=== PATIENT | female | born 1995 | race Two or more races ===

== ENCOUNTER 2021-03-27 13:55 | Emergency (ER) | payer OTHER ==
[~2021-03-27] VITALS: Ht 160 cm; Wt 68.5 kg
== END 2021-03-27 21:34 | disposition home or self-care (01) ==
LOC: ER 13:55
DX: N93.9 Abnormal uterine and vaginal bleeding, unspecified (principal); Z3A.22 22 weeks gestation of pregnancy; Z03.818 Encounter for observation for suspected exposure to other biological agents ruled out

== ENCOUNTER 2021-03-29 11:03 | Emergency (ER) | payer OTHER ==
[~2021-03-29] VITALS: Ht 160 cm; Wt 68.5 kg
[2021-03-29] MEDS ORDERED: ACETAMINOPHEN650 M2 PO (18:01)
== END 2021-03-29 18:13 | disposition home or self-care (01) ==
LOC: ER 11:03
DX: O20.9 Hemorrhage in early pregnancy, unspecified (principal); R10.2 Pelvic and perineal pain